=== PATIENT | male | born 2000 | race Caucasian/White ===

== ENCOUNTER 2022-03-19 17:08 | Emergency (ER) | payer BC ==
[~2022-03-19] VITALS: Ht 188 cm; Wt 84.4 kg
[2022-03-19] MEDS ORDERED: CLARINEX5 MG PO (17:26)
[2022-03-19] MEDS ORDERED: ALBUTEROL0.63 MG/3 INH (17:26)
[2022-03-19] MEDS ORDERED: ZYRTEC10 M3 PO (17:26)
[2022-03-19] MEDS ORDERED: SINGULAIR10 MG PO (17:27)
[2022-03-19] MEDS ORDERED: VENTOLIN HFA18 GM (17:27)
[2022-03-19] MEDS ORDERED: CIPRO HC OTIC S10 ML AS (17:32)
== END 2022-03-19 17:36 | disposition home or self-care (01) ==
LOC: ED 17:08
DX: R59.0 Localized enlarged lymph nodes (principal); Z91.09 Other allergy status, other than to drugs and biological substances; Z79.899 Other long term (current) drug therapy
CPT/HCPCS: 99283